=== PATIENT | male | born 1935 | race Caucasian/White ===

== ENCOUNTER → 2016-05-11 | Outpatient (CLI) | payer OTHER ==
--- NOTE | 2016-05-11 09:54 | KCIC ---
PROCEDURE PA and lateral chest radiographs 05/11/2016 HISTORY Dry cough, wheezing and fatigue for 1 week. FINDINGS PA and lateral digital radiographs of the chest were obtained. No previous studies are available for comparison. 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 The cardiac silhouette is borderline enlarged. The thoracic aorta is tortuous. No acute pulmonary infiltrate is seen. No pleural effusion or pneumothorax is noted. Degenerative changes are seen involving the thoracic spine. IMPRESSION No acute abnormality is seen. Electronically signed by: Jose Eduardo Euceda MD (May 11, 2016 09:52:44)
== END | disposition home or self-care (01) ==
LOC: KCIC 09:09
PROVIDERS: ATTEND Physician Assistant Medical
DX: M47.894 Other spondylosis, thoracic region (principal); I51.7 Cardiomegaly; R06.2 Wheezing; R53.83 Other fatigue; Q25.46 Tortuous aortic arch; Z87.891 Personal history of nicotine dependence
CPT/HCPCS: 71020